=== PATIENT | female | born 1990 | race Caucasian/White ===

== ENCOUNTER → 2018-12-14 | Outpatient (CLI) | payer BC | END | disposition home or self-care (01) | LOC: LAB 19:33 → LAB SHORT 19:33 | DX: Z34.00 Encounter for supervision of normal first pregnancy, unspecified trimester (principal) | CPT/HCPCS: 87081; 87653 ==

== ENCOUNTER → 2019-02-24 | Outpatient (CLI) | payer BC | END | disposition home or self-care (01) | LOC: LAB 09:46 → LAB SHORT 09:46 | PROVIDERS: Obstetrics & Gynecology | DX: Z01.419 Encounter for gynecological examination (general) (routine) without abnormal findings (principal) | CPT/HCPCS: G0123 ==

== ENCOUNTER 2019-07-28 08:53 | Emergency (ER) | payer BC ==
[~2019-07-28] VITALS: Ht 160 cm; Wt 65.8 kg
[~2019-07-28 08:53] MED LIST: IBUP800 PO; UNISOM25 MG PO; Verotin-Gr Cap1 EACH PO
[2019-07-28] MEDS ORDERED: HYDR1TAB94 PO (09:53)
== END 2019-07-28 10:23 | disposition home or self-care (01) ==
LOC: ER 08:53
DX: S82.842A Displaced bimalleolar fracture of left lower leg, initial encounter for closed fracture (principal); Z88.5 Allergy status to narcotic agent; W19.XXXA Unspecified fall, initial encounter
CPT/HCPCS: 29515; 73600; 96374-59; 99283-25; J1885

== ENCOUNTER 2019-07-30 10:58 | Day surgery (SDC) | payer BC ==
[~2019-07-30] VITALS: Ht 160 cm; Wt 64.8 kg
[~2019-07-30 10:58] MED LIST changes: +HYDR1TAB94 PO
[2019-07-30] MEDS ORDERED: TRAM50 PO (12:36)
[2019-07-30] MEDS ORDERED: VITAMIN D21250 MCG PO (12:37)
[2019-07-30] MEDS ORDERED: ACET500 PO (12:38)
== END 2019-07-30 16:45 | disposition home or self-care (01) ==
LOC: ORSCSDS 10:58
PROVIDERS: Podiatrist Foot & Ankle Surgery
PROC: 0QSK04Z Reposition Left Fibula with Internal Fixation Device, Open Approach (ICD-10-PCS; principal; 2019-07-30 12:45)
PROC: 0QSH04Z Reposition Left Tibia with Internal Fixation Device, Open Approach (ICD-10-PCS; principal; 2019-07-30 12:45)
DX: S82.842A Displaced bimalleolar fracture of left lower leg, initial encounter for closed fracture (principal)
CPT/HCPCS: C1713; C1769; J0171; J0690; J1100; J1885; J2250; J2405; J2704; J3010; J7120

== ENCOUNTER → 2020-07-03 | Outpatient (CLI) | payer BC ==
[~2020-07-03] MED LIST changes: +ACET325 PO; +ACET500 PO; +Calcium + Vita1 EACH PO; +TRAM50 PO; +VITAMIN D21250 MCG PO
== END | disposition home or self-care (01) ==
LOC: LAB EV 16:00
DX: Z34.83 Encounter for supervision of other normal pregnancy, third trimester (principal)
CPT/HCPCS: 87081; 87150

== ENCOUNTER 2020-07-27 10:45 | Inpatient (IN) | payer BC ==
[~2020-07-27] VITALS: Ht 160 cm; Wt 92.2 kg
[~2020-07-27 10:45] MED LIST changes: -ACET325 PO; -Calcium + Vita1 EACH PO
[2020-07-27] MEDS ORDERED: Calcium + Vita1 EACH PO (11:16)
[2020-07-27 11:40] LABS: BASOPHILS ABSOLUTE AUTO 0.03 K/mm3 (0.00-0.23); BASOPHILS PERCENT AUTO 0 % (0-2); EOSINOPHILS PERCENT AUTO 1 % (0-6); Hemoglobin 11.4 g/dL (11.5-16.0); IMMATURE GRAN PERCENT AUTO 1 % (0-1); LYMPHOCYTES ABSOLUTE AUTO 1.66 K/mm3 (0.84-5.20); LYMPHOCYTES PERCENT AUTO 15 % (21-46); MONOCYTES ABSOLUTE AUTO 0.93 K/mm3 (0.16-1.47); MONOCYTES PERCENT AUTO 8 % (4-13); Mean Corpuscular HGB Conc 32.6 g/dL (31.5-36.5); Mean Corpuscular Volume 89 fL (80-100); Mean Platelet Volume 10.5 fL (9.1-12.4); NEUTROPHILS PERCENT AUTO 75 % (41-73); Platelet Count 206 K/mm3 (150-400); RDW Coefficient Variation 13.2 % (11.7-14.2); RDW Standard Deviation 43.2 fL (35.1-46.3); Red Blood Cell Count 3.93 M/mm3 (3.80-5.20); White Blood Cell Count 11.22 K/mm3 (4.00-11.30)
--- NOTE | 2020-07-28 07:30 | NUR ---
PT IN BED, DEBRA AT SIDE, SUPORTIVE & HELPFUL. BRF WELL, NB IN SLEEPY PHASE, REASSURED THAT THIS IS NORMAL. PLAN TO DC HOME TOMORROW. HAS 18 MO AT HOME. NO ISSUES, WILL WORK ON PAPERWORK LATER AND RESTING TODAY.
--- NOTE | 2020-07-28 07:33 | NUR ---
PT SLEEPING SOUNDLY.
--- NOTE | 2020-07-28 08:17 | NUR ---
PT ALREADY HAS A PORTAL ACCOUNT
[2020-07-28] MEDS ORDERED: IBUP800 PO (14:10)
[2020-07-28] MEDS ORDERED: ACET325 PO (14:10)
== END 2020-07-29 10:20 | disposition home or self-care (01) | DRG 807 ==
LOC: OBS 10:45 → BC 10:46 → OBS 11:07 → BC 11:11
PROVIDERS: ADMIT Obstetrics & Gynecology
PROC: 10E0XZZ Delivery of Products of Conception, External Approach (ICD-10-PCS; principal; 2020-07-27)
PROC: 0KQM0ZZ Repair Perineum Muscle, Open Approach (ICD-10-PCS; 2020-07-27)
PROC: 3E033VJ Introduction of Other Hormone into Peripheral Vein, Percutaneous Approach (ICD-10-PCS; 2020-07-27)
PROC: 10907ZC Drainage of Amniotic Fluid, Therapeutic from Products of Conception, Via Natural or Artificial Opening (ICD-10-PCS; 2020-07-27)
PROC: 00HU33Z Insertion of Infusion Device into Spinal Canal, Percutaneous Approach (ICD-10-PCS; 2020-07-27)
PROC: 3E0R3BZ Introduction of Anesthetic Agent into Spinal Canal, Percutaneous Approach (ICD-10-PCS; 2020-07-27)
DX: O99.214 Obesity complicating childbirth (principal); Z37.0 Single live birth; E66.9 Obesity, unspecified; O70.1 Second degree perineal laceration during delivery; Z3A.39 39 weeks gestation of pregnancy; Z20.828 Contact with and (suspected) exposure to other viral communicable diseases
CPT/HCPCS: 36415; 51702; 85025; 85460; 86850; 86900; 86901; A9270; J2590; J2791; J3010; J7120

== ENCOUNTER → 2021-04-03 | Outpatient (CLI) | payer BC ==
[~2021-04-03] MED LIST changes: +ACET325 PO; +Calcium + Vita1 EACH PO
[2021-04-03 16:04] LABS: BASOPHILS ABSOLUTE AUTO 0.01 K/mm3 (0.00-0.23); BASOPHILS PERCENT AUTO 0 % (0-2); EOSINOPHILS PERCENT AUTO 0 % (0-6); Hematocrit 39.8 % (33.0-51.0); Hemoglobin 13.3 g/dL (11.5-16.0); Mean Corpuscular HGB Conc 33.4 g/dL (31.5-36.5); Mean Corpuscular Volume 87 fL (80-100); RDW Coefficient Variation 12.4 % (11.7-14.2); RDW Standard Deviation 39.6 fL (35.1-46.3); Red Blood Cell Count 4.58 M/mm3 (3.80-5.20); White Blood Cell Count 4.75 K/mm3 (4.00-11.30)
[2021-04-03 16:14] LABS: Alanine Aminotransfer (ALT/SGP 21 U/L (12-78); Albumin, Blood 3.8 g/dL (3.4-5.0); Alk Phos 62 U/L (40-126); Anion Gap 10 mmol/L (6-16); Aspartate Aminotrans (AST/SGOT 24 U/L (12-37); Bilirubin, Total 0.3 mg/dL (0.1-1.0); Blood Urea Nitrogen 11 mg/dL (8-24); Bun/Creatinine Ratio 15.3 (12.0-20.0); CO2, Blood 28 mmol/L (21-32); Calcium, Blood 8.6 mg/dL (8.5-10.1); Chloride, Blood 104 mmol/L (98-108); Creatinine, Blood 0.72 mg/dL (0.40-1.00); Globulin, Blood 3.9 g/dL (2.2-4.0); Glomerular Filtration Rate >60 (60-); Glucose, Blood 98 mg/dL (70-99); Potassium, Blood 4.2 mmol/L (3.5-5.5); Sodium, Blood 142 mmol/L (136-145); Total Protein, Blood 7.7 g/dL (6.4-8.2)
[2021-04-03 16:15] LABS: Troponin I <0.017 ng/mL (0.000-0.040)
[2021-04-03 16:27] LABS: IMMATURE GRAN ABSOLUTE AUTO 0.01 K/mm3 (0.00-0.10); IMMATURE GRAN PERCENT AUTO 0 % (0-1); LYMPHOCYTES ABSOLUTE AUTO 1.14 K/mm3 (0.84-5.20); LYMPHOCYTES PERCENT AUTO 24 % (21-46); MONOCYTES ABSOLUTE AUTO 0.42 K/mm3 (0.16-1.47); MONOCYTES PERCENT AUTO 9 % (4-13); Mean Platelet Volume 10.5 fL (9.1-12.4); NEUTROPHILS ABSOLUTE AUTO 3.17 K/mm3 (1.96-9.15); NEUTROPHILS PERCENT AUTO 67 % (41-73); Platelet Count 135 K/mm3 (150-400)
== END | disposition home or self-care (01) ==
LOC: LAB 15:57 → LAB SHORT 15:57
PROVIDERS: Chiropractor
DX: R07.81 Pleurodynia (principal)
CPT/HCPCS: 80053; 84484; 85025; 85379

== ENCOUNTER → 2022-04-22 | Outpatient (CLI) | payer BC ==
[2022-04-25 17:10] LABS: HPV 16 Negative (Negative); HPV 18 Negative (Negative); HPV OTHER HR TYPES Negative (Negative)
== END ==
LOC: LAB SHORT 16:22 → LAB 16:22
PROVIDERS: Advanced Practice Midwife
DX: Z01.419 Encounter for gynecological examination (general) (routine) without abnormal findings (principal)
CPT/HCPCS: 87624; G0123

== ENCOUNTER → 2023-07-16 | Outpatient (CLI) | payer BC | LOC: LAB 08:35 → LAB SHORT 08:35 | DX: N39.0 Urinary tract infection, site not specified (principal) | CPT/HCPCS: 87077; 87086; 87186 ==

== ENCOUNTER → 2023-09-04 | Outpatient (CLI) | payer BC ==
[2023-09-04 17:26] LABS: Source, Urine Clean Catch
[2023-09-04 18:50] LABS: Bacteria Few /hpf; Red Blood Cells, Urine 0-2 /hpf (0-2); Squamous Epithelial Cells Rare /hpf (Few)
== END ==
LOC: LAB SHORT 17:24 → LAB 17:24
PROVIDERS: Obstetrics & Gynecology
DX: Z34.81 Encounter for supervision of other normal pregnancy, first trimester (principal)
CPT/HCPCS: 81015; 87086

== ENCOUNTER → 2023-09-19 | Outpatient (CLI) | payer BC ==
[2023-09-19 18:50] LABS: BASOPHILS ABSOLUTE AUTO 0.04 K/mm3 (0.00-0.23); BASOPHILS PERCENT AUTO 0 % (0-2); EOSINOPHILS ABSOLUTE AUTO 0.17 K/mm3 (0.00-0.68); EOSINOPHILS PERCENT AUTO 2 % (0-6); Hematocrit 36.6 % (33.0-51.0); Hemoglobin 12.2 g/dL (11.5-16.0); IMMATURE GRAN ABSOLUTE AUTO 0.02 K/mm3 (0.00-0.10); IMMATURE GRAN PERCENT AUTO 0 % (0-1); LYMPHOCYTES ABSOLUTE AUTO 1.49 K/mm3 (0.84-5.20); LYMPHOCYTES PERCENT AUTO 15 % (21-46); MONOCYTES ABSOLUTE AUTO 0.66 K/mm3 (0.16-1.47); MONOCYTES PERCENT AUTO 7 % (4-13); Mean Corpuscular HGB 29.6 pg (26.0-34.0); Mean Corpuscular HGB Conc 33.3 g/dL (31.5-36.5); Mean Corpuscular Volume 89 fL (80-100); Mean Platelet Volume 10.5 fL (9.1-12.4); NEUTROPHILS PERCENT AUTO 76 % (41-73); Platelet Count 231 K/mm3 (150-400); RDW Standard Deviation 42.7 fL (35.1-46.3); Red Blood Cell Count 4.12 M/mm3 (3.80-5.20); White Blood Cell Count 9.78 K/mm3 (4.00-11.30)
[2023-09-22 08:09] LABS: HEPATITIS B SURFACE ANTIGEN Negative (Negative)
[2023-09-22 08:56] LABS: HEPATITIS C AB CIA INTERP Negative (Negative); HEPATITIS C ANTIBODY CIA INDEX 0.05 IV
[2023-09-22 09:00] LABS: HIV 1,2 COMBO ANTIGEN/ANTIBODY Negative (Negative)
== END ==
LOC: LAB SHORT 18:03
PROVIDERS: Obstetrics & Gynecology
DX: Z34.81 Encounter for supervision of other normal pregnancy, first trimester (principal)
CPT/HCPCS: 84443; 86803; 87340; 87389

== ENCOUNTER 2024-03-25 10:50 | Inpatient (IN) | payer BC ==
[2024-03-25] VITALS (24 sets, daily range): BP systolic 111–144; BP diastolic 57–98
[~2024-03-25] VITALS: Ht 160 cm; Wt 91.8 kg
[2024-03-25] MEDS ORDERED: Misoprostol 200 MCG Tab PR PRN (11:05)
[2024-03-25] MEDS ORDERED: Misoprostol 200 MCG Tab BC PRN (11:05)
[2024-03-25] MEDS ORDERED: OXYTOCIN/RINGER'S LACTATE 500 ML IV PRN (11:05)
[2024-03-25] MEDS ORDERED: Tranexamic Acid 100 ML IV SCH (11:05)
[2024-03-25] MEDS ORDERED: Calcium Carbonate 500 MG Tab Chew PO PRN (11:05)
[2024-03-25] MEDS ORDERED: Carboprost Tromethamine 250 MCG/ML 1ML Amp IM PRN (11:05)
[2024-03-25] MEDS ORDERED: Oxytocin 10 Unit / ML Vial IM PRN (11:05)
[2024-03-25] MEDS ORDERED: Lactated Ringer's 1,000 ML IV PRN (11:05)
[2024-03-25] MEDS ORDERED: Ondansetron HCl 2 MG / ML 2ML Vial IV PRN (11:05)
[2024-03-25] MEDS ORDERED: Lactated Ringer's 1,000 ML IV SCH ×2 (11:05→11:10)
[2024-03-25] MEDS ORDERED: Methylergonovine Maleate 0.2MG / ML 1ML Amp IM PRN (11:05)
[2024-03-25] MEDS ORDERED: FentaNYL Citrate 50 MCG/ML 2 ML Injection IV PRN (11:05)
[2024-03-25] MEDS ORDERED: OXYTOCIN/RINGER'S LACTATE 500 ML IV SCH (11:10)
[2024-03-25] MEDS ORDERED: ePHEDrine Sulfate 50 MG/ML 1ML Injection XX PRN (11:10)
[2024-03-25] MEDS ORDERED: FentaNYL 2mcg/ml-Bup 0.1% Epd 250 ML EPI PRN (11:10)
[2024-03-25 11:34] LABS: BASOPHILS ABSOLUTE AUTO 0.01 K/mm3 (0.00-0.23); BASOPHILS PERCENT AUTO 0 % (0-2); EOSINOPHILS ABSOLUTE AUTO 0.11 K/mm3 (0.00-0.68); EOSINOPHILS PERCENT AUTO 1 % (0-6); Hemoglobin 12.3 g/dL (11.5-16.0); IMMATURE GRAN ABSOLUTE AUTO 0.05 K/mm3 (0.00-0.10); IMMATURE GRAN PERCENT AUTO 1 % (0-1); LYMPHOCYTES ABSOLUTE AUTO 1.42 K/mm3 (0.84-5.20); LYMPHOCYTES PERCENT AUTO 15 % (21-46); MONOCYTES ABSOLUTE AUTO 0.81 K/mm3 (0.16-1.47); MONOCYTES PERCENT AUTO 8 % (4-13); Mean Corpuscular HGB Conc 34.2 g/dL (31.5-36.5); Mean Corpuscular Volume 88 fL (80-100); Mean Platelet Volume 10.1 fL (9.1-12.4); NEUTROPHILS ABSOLUTE AUTO 7.29 K/mm3 (1.96-9.15); NEUTROPHILS PERCENT AUTO 75 % (41-73); Platelet Count 238 K/mm3 (150-400); RDW Coefficient Variation 13.3 % (11.7-14.2); RDW Standard Deviation 42.9 fL (35.1-46.3); White Blood Cell Count 9.69 K/mm3 (4.00-11.30)
[2024-03-25] MEDS ORDERED: ESCI10 PO (12:02)
[2024-03-26] VITALS (12 sets, daily range): BP systolic 102–155; BP diastolic 52–83
[2024-03-26] MEDS ORDERED: Rho(D) Immune Globulin 300 MCG / SYR IM ONE (02:25)
[2024-03-26] MEDS ORDERED: Benzocaine Topical Anesthetic Spray 60GM TOP PRN (02:25)
[2024-03-26] MEDS ORDERED: OXYTOCIN/RINGER'S LACTATE 500 ML IV SCH (02:25)
[2024-03-26] MEDS ORDERED: Docusate Sodium 100 MG Cap PO PRN (02:25)
[2024-03-26] MEDS ORDERED: Acetaminophen 500 MG Tab PO PRN (02:25)
[2024-03-26] MEDS ORDERED: Carboprost Tromethamine 250 MCG/ML 1ML Amp IM PRN (02:25)
[2024-03-26] MEDS ORDERED: Misoprostol 200 MCG Tab PR PRN (02:30)
[2024-03-26] MEDS ORDERED: Witch Hazel/Glycerin PADS TOP PRN (02:30)
[2024-03-26] MEDS ORDERED: Ketorolac Tromethamine 30mg Vial IV PRN (02:30)
[2024-03-26] MEDS ORDERED: Methylergonovine Maleate 0.2MG / ML 1ML Amp IM PRN (02:30)
[2024-03-26] MEDS ORDERED: Lactated Ringer's 1,000 ML IV SCH (02:30)
[2024-03-26] MEDS ORDERED: Lanolin Cream TOP SCH (03:50)
[2024-03-26] MEDS ORDERED: Prenatal Vit/FE Fumarate/FA 1 Tab PO SCH (09:00)
[2024-03-26] MEDS ORDERED: Citalopram Hydrobromide 20 MG Tab PO SCH (21:00)
[2024-03-27 04:00] VITALS: BP 101/65
[2024-03-27 08:06] VITALS: BP 116/71
== END 2024-03-27 10:58 | disposition home or self-care (01) | DRG 807 ==
LOC: OBS 10:50 → BC 10:50 → OBS 11:06 → BC 11:07
PROVIDERS: ADMIT Obstetrics & Gynecology
PROC: 10E0XZZ Delivery of Products of Conception, External Approach (ICD-10-PCS; principal; 2024-03-26)
PROC: 0KQM0ZZ Repair Perineum Muscle, Open Approach (ICD-10-PCS; 2024-03-26)
PROC: 3E0R3BZ Introduction of Anesthetic Agent into Spinal Canal, Percutaneous Approach (ICD-10-PCS; 2024-03-26)
PROC: 00HU33Z Insertion of Infusion Device into Spinal Canal, Percutaneous Approach (ICD-10-PCS; 2024-03-26)
PROC: 10907ZC Drainage of Amniotic Fluid, Therapeutic from Products of Conception, Via Natural or Artificial Opening (ICD-10-PCS; 2024-03-26)
DX: O69.81X0 Labor and delivery complicated by cord around neck, without compression, not applicable or unspecified (principal); Z37.0 Single live birth; Z3A.39 39 weeks gestation of pregnancy; O70.1 Second degree perineal laceration during delivery; O99.344 Other mental disorders complicating childbirth; F41.8 Other specified anxiety disorders; Z90.49 Acquired absence of other specified parts of digestive tract; Z88.5 Allergy status to narcotic agent; Z79.899 Other long term (current) drug therapy
CPT/HCPCS: 36415; 51702; 85025; 85460; 86850; 86870; 86900; 86901; A9270; J1885; J2590; J2791; J7120